=== PATIENT | male | born 2000 | race Caucasian/White ===

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

== ENCOUNTER 2020-02-03 16:50 | Outpatient (CLI) | payer OTHER, SELFPAY ==
[2020-02-03 19:48] LABS: Anion Gap 10 mmol/L (8-16); Blood Urea Nitrogen 17 mg/dL (8-21); Calcium 9.8 mg/dL (8.9-10.7); Carbon Dioxide 28 mmol/L (22-30); Chloride 104 mmol/L (98-107); Estimated Glomerular Filt Rate > 60; Glucose 99 mg/dL (75-110); Potassium 4.2 mmol/L (3.4-5.0); Sodium 142 mmol/L (134-143)
== END 2020-02-03 16:51 | disposition home or self-care (01) ==
LOC: ANHLAB 16:52
PROVIDERS: PCP Family Medicine; Visit Provider Physician Assistant Medical
DX: E87.0 Hyperosmolality and hypernatremia (principal)
CPT/HCPCS: 36415; 80048

== ENCOUNTER 2020-05-29 15:16 | Outpatient (CLI) | payer OTHER, SELFPAY ==
--- NOTE | 2020-05-29 15:32 | ECG_ITS ---
Measurements Intervals [place] Rate: 85 P: 76 RI: 134 QRS: 83 QRSD: 97 T: 78 QT: 338 QTc: 403 Interpretive Statements SINUS RHYTHM PEAKED T WAVES- CONSIDER HYPERKALEMIA OR ISCHEMIA ABNORMAL ECG Electronically Signed On 05-29-2020 16:56:09 CDT by Adonis Bearden D.O.
[2020-05-29 15:35] LABS: Hematocrit 46.6 % (42.0-52.0); Hemoglobin 16.2 g/dL (14.0-18.0); Mean Corpuscular HGB Conc 34.8 g/dl (32-36); Mean Corpuscular Hemoglobin 30.7 pg (26-34); Mean Corpuscular Volume 88.4 fl (80-100); Mean Platelet Volume 10.4 fl (7.4-10.4); Platelet Count Result 243 k/mm3 (150-375); Red Blood Count 5.27 M/mm3 (4.6-6.20)
[2020-05-29 15:50] LABS: Anion Gap 12 mmol/L (8-16); Blood Urea Nitrogen 17 mg/dL (9-20); Calcium 9.9 mg/dL (8.4-10.2); Carbon Dioxide 28 mmol/L (22-30); Chloride 101 mmol/L (98-107); Estimated Glomerular Filt Rate > 60; Glucose 113 mg/dL (75-110); Sodium 141 mmol/L (137-145)
== END 2020-05-29 15:17 | disposition home or self-care (01) ==
LOC: ANHLAB 15:19
PROVIDERS: PCP Family Medicine; Visit Provider Physician Assistant Medical
DX: R00.2 Palpitations (principal); R94.31 Abnormal electrocardiogram [ECG] [EKG]
CPT/HCPCS: 36415; 80048; 84443; 85027; 93005

== ENCOUNTER 2020-05-30 09:06 | Emergency (ER) | payer OTHER, SELFPAY ==
--- NOTE | ~2020-05-30 | XR_ITS ---
EXAMINATION: XR chest 2V DATE: 05/30/2020 09:52 INDICATION: Chest pain. TECHNIQUE: Frontal and lateral views of the chest were obtained. COMPARISON: Chest 2 views 05/08/2015 FINDINGS: The chest demonstrates clear lungs without pneumonia, pleural effusion, or pneumothorax. Th e heart size is normal. IMPRESSION: 1. No acute cardiopulmonary disease. Reviewed, dictated and finalized at location A.
[2020-05-30 09:10] VITALS: BP 126/90; PULSE 85; RESP 16; TEMP 36.7; O2SAT 100
--- NOTE | 2020-05-30 09:13 | ECG_ITS ---
Measurements Intervals [place] Rate: 88 P: 71 IN: 130 QRS: 10 QRSD: 102 T: 65 QT: 352 QTc: 426 Interpretive Statements SINUS RHYTHM PEAKED T WAVES- CONSIDER HYPERKALEMIA OR ISCHEMIA BASELINE ARTIFACT- II, III, AVR, AVL, AVF, V2-V6 ABNORMAL ECG Electronically Signed On 05-30-2020 9:22:33 CDT by Adonis Bearden D.O.
[2020-05-30 09:18] VITALS: PULSE 85
--- NOTE | 2020-05-30 09:21 | ED.CHESTPAIN ---
HPI - Chest Pain General Chief Complaint: Chest Pain Stated Complaint: chest pain, high hear rate Time Seen by Provider: 05/30/20 09:13 Source: RN notes reviewed History of Present Illness HPI narrative: Patient presents to emergency department from home for palpitations. Patient states that over the past 4 days he has been having episodes of palpitations with heart rate measured up to 160 bpm per his apple watch patient states that he also has having intermittent midsternal chest pain described as sharp and stabbing the last few seconds and resolved he denies any current palpitations or chest pain states he had gone to his PCPs office today and then had an outpatient EKG done yesterday and was called this morning come to the ED for further evaluation denies any fevers or chills shortness of breath abdominal pain nausea vomiting or any other symptoms Related Data Home Medications Medication Instructions Recorded Confirmed No Home Medications 05/30/20 05/30/20 Allergies Allergy/AdvReac Type Severity Reaction Status Date / Time No Known Allergies Allergy Verified 05/30/20 09:19 Review of Systems Review of Systems: Narrative: General: Denies fevers or chills ENT: Denies congestion Respiratory: Denies shortness of breath or cough CV: see HPI GI: Denies abdominal pain nausea, emesis or diarrhea Musculoskeletal: Denies back pain or muscle pain Neuro: Denies numbness, tingling, weakness or focal weakness Skin: Denies rash Except as documented, all other systems reviewed and negative [facility] Past Medical History Medical History Body mass index (BMI) less than 16.5 Social History Social History Smoking status: Never smoker Second hand tobacco smoke exposure: No Alcohol intake: former Substance use: former Gender identity (if verbalized by the patient): Male Exam Narrative: Exam Narrative: APPEARANCE: No acute distress, nontoxic, resting in bed EYES: EOMI HEENT: Normocephalic, atraumatic, OMM RESPIRATORY: No respiratory distress Clear to auscultation bilaterally with no rhonchi wheezing or rales. CARDIOVASCULAR: Regular rate and rhythm without murmurs rubs or gallops. ABDOMINAL: Soft, nontender, nondistended, no rebound or guarding MUSCULOSKELETAl: Moves all extremities. No clubbing, cyanosis or edema. NEURO: Awake and alert. Following commands, speech normal, no focal deficits SKIN:: Warm, dry. No rashes lesions or abrasions PSYCHIATRIC: Normal affect/mood, Course Course Emergency Course: Discussed with Dr. Katelyn Ortiz presentation work-up EKG was sent to Dr Escalona for review and agrees that PTAs are likely from the patient's young age and size this time feels patient may be discharged to follow-up as an outpatient Discussed with patient results of workup and diagnosis. Discussed need for follow-up with primary care, proper use of medication, and reasons to return to the emergency department. Patient understands and agrees to current treatment plan Vital Signs Vital signs: Vital Signs Temperature 98.1 F 05/30/20 09:10 Pulse Rate 85 05/30/20 09:10 Respiratory Rate 16 05/30/20 09:10 Blood Pressure 126/90 05/30/20 09:10 Pulse Oximetry 100 05/30/20 09:10 Temperature 98.1 F 05/30/20 09:10 Pulse Rate 62 05/30/20 11:00 Respiratory Rate 18 05/30/20 11:00 Blood Pressure 103/69 05/30/20 11:00 Pulse Oximetry 99 05/30/20 11:00 MDM - Chest Pain MDM Narrative Medical decision making narrative: Patient's EKGs and labs are without significant high risk changes. Cardiac risk factors reviewed. Patient is felt likely low risk for ACS and reasonable for further risk stratification testing as an outpatient. Pain was not sudden or maximal in onset without tearing or ripping quality. No other signs of symptoms suggest aortic dissection. A low-risk Wells criteria is noted, PE is felt
[2020-05-30 09:23] VITALS: BP 129/91; PULSE 75; RESP 16; O2SAT 100
[2020-05-30 09:30] LABS: Basophils Absolute Auto 0.1 K/mm3 (0.0-0.1); Basophils Percent Auto 1.1 % (0.2-1.2); Eosinophils Absolute Auto 0.1 K/mm3 (0-0.3); Eosinophils Percent Auto 1.3 % (0-4.4); Hematocrit 47.6 % (42.0-52.0); Hemoglobin 16.7 g/dL (14.0-18.0); Immature Granulocyte Absolute 0.01 K/mm3 (0.00-0.031); Immature Granulocyte Percent A 0.2 % (0-0.5); Lymphocytes Absolute Auto 2.76 K/mm3 (0.9-3.2); Lymphocytes Percent Auto 43.4 % (18.3-44.2); Mean Corpuscular HGB Conc 35.1 g/dl (32-36); Mean Corpuscular Hemoglobin 30.9 pg (26-34); Mean Corpuscular Volume 88.1 fl (80-100); Mean Platelet Volume 10.7 fl (7.4-10.4); Monocytes Absolute Auto 0.8 K/mm3 (0.1-0.6); Monocytes Percent Auto 11.9 % (2.6-8.5); Neutrophils Absolute Auto 2.7 K/mm3 (1.3-6.7); Neutrophils Percent Auto 42.1 % (45.5-73.1); Platelet Count Result 231 k/mm3 (150-375); Red Cell Distribution Width 11.9 % (11.5-14.5); White Blood Count 6.4 K/mm3 (4.5-10.0)
[2020-05-30 09:40] LABS: INR 1.2; Prothrombin Time 15.3 Seconds (11.1-14.7)
[2020-05-30 09:41] LABS: Partial Thromboplastin Time 30.6 SECONDS (22.3-36.8)
[2020-05-30 09:42] LABS: Anion Gap 12 mmol/L (8-16); Blood Urea Nitrogen 16 mg/dL (9-20); Calcium 10.1 mg/dL (8.4-10.2); Carbon Dioxide 28 mmol/L (22-30); Chloride 102 mmol/L (98-107); Estimated CRCL calculation 69 ml/min; Estimated Glomerular Filt Rate > 60; Glucose 110 mg/dL (75-110); Magnesium 1.9 mg/dL (1.6-2.3); Potassium 3.6 mmol/L (3.4-5.0); Sodium 142 mmol/L (137-145)
[2020-05-30 09:54] LABS: Troponin I < 0.012 ng/mL (0.000-0.034)
[2020-05-30 10:03] VITALS: BP 103/73; PULSE 73; RESP 16; O2SAT 100
[2020-05-30 11:00] VITALS: BP 103/69; PULSE 62; RESP 18; O2SAT 99
[2020-05-30 12:00] VITALS: BP 113/79; PULSE 68; RESP 18; O2SAT 100
== END 2020-05-30 12:00 | disposition home or self-care (01) ==
PROVIDERS: Emergency Provider Emergency Medicine; PCP Family Medicine
DX: R00.2 Palpitations (principal); R94.31 Abnormal electrocardiogram [ECG] [EKG]
CPT/HCPCS: 36415; 71046; 80048; 83735; 84443; 84484; 85025; 85610; 85730; 93005; 99284

== ENCOUNTER 2020-05-31 16:20 | Outpatient (CLI) | payer OTHER, SELFPAY ==
--- NOTE | 2020-06-04 10:58 | WPDHOLTEREM ---
Holter/Event Monitor Holter/Event Monitor Date of procedure: 06/04/20 Procedure Type: 48 hour Holter monitor Diagnosis: palpitations Indications: palpitations Image/Tracing Quality: good Finding: a total of 47 hours 59 minutes were recorded and analyzed. Underlying normal sinus rhythm with heart rate variability between 42 and 122 beats per minute with average heart rate of 65 beats per minute. The IV conduction system appears to be within normal limits. The AV conduction system appears to be a bit short. There was 1 PVC and 33 supraventricular ectopic beats. Thirty-one of these were single PACs and there was 1 atrial couplet. There is no complex arrhythmia, atrial fibrillation, sustained or nonsustained runs of ventricular or supraventricular tachycardia. No significant pauses or heart block. Longest RR interval was 1.6 seconds. Several symptom events are recorded in the patient's diary. Symptom events of chest pain, heart racing were reviewed. All of these correlate to sinus rhythm only without arrhythmia. Conclusion: 1. Sinus rhythm with average heart rate 65 beats per minute. 2. 1 PVC 3. 31 PACs and 1 atrial couplet 4. no complex arrhythmia 5. numerous symptom events of chest pain and heart racing correlate to sinus rhythm only without ectopy or arrhythmia
== END 2020-05-31 16:21 | disposition home or self-care (01) ==
LOC: ANHCARD 16:21
PROVIDERS: PCP Family Medicine; Visit Provider Physician Assistant Medical
DX: R00.2 Palpitations (principal); R07.89 Other chest pain
CPT/HCPCS: 93225; 93226

== ENCOUNTER 2020-06-08 10:41 | Outpatient (CLI) | payer OTHER, SELFPAY ==
--- NOTE | 2020-06-08 | ECHO_ITS ---
Patient Info Name: Nathanael Ramos Age: 20 years : 2000 Gender: Male Ht: 68 in Wt: 107 lbs BSA: 1.51 m2 HR: 65 bpm BP: 124 / 84 mmHg Heart Rhythm: Sinus Rhythm Exam Date: 06/08/2020 11:36 AM Exam Location: [facility] Patient Status: Outpatient Admit Date: 06/08/2020 Staff Ordering Physician: Liyah Srivastava MD Feeder Catcher: Charlotte Koroma RDCS Attending Provider: Liyah Srivastava MD Exam Type: CA echo doppler color flow Study Info Indications R07.89 - Other chest pain R00.0 - Tachycardia, unspecified Complete two-dimensional, color flow and Doppler transthoracic echocardiogram is performed. Summary 1. Complete two-dimensional, color flow and Doppler transthoracic echocardiogram is performed. 2. Left ventricular chamber dimension is normal. 3. Left ventricular systolic function is normal, estimated at 55-60%. 4. There is no increased left ventricular wall thickness. 5. The left ventricular diastolic function is normal. 6. There is mild tricuspid valve regurgitation. Left Ventricle Left ventricular chamber dimension is normal. Left ventricular systolic function is normal, estimated at 55-60%. There is no increased left ventricular wall thickness. The left ventricular diastolic function is normal. Right Ventricle Right ventricular chamber dimension is normal. Right ventricular systolic function is normal. Left Atria Left atrial chamber dimension is normal. Right Atria Right atrial chamber dimension is normal. Atrial Septum Intact interatrial septum visualized by color flow imaging. Aortic Valve The aortic valve is trileaflet. There is no aortic valve sclerosis. There is no aortic valve stenosis. There is trace aortic valve regurgitation. Pulmonic Valve The pulmonic valve is normal. There is no pulmonic valve stenosis. There is trace pulmonic regurgitation. Mitral Valve The mitral valve has normal leaflets. There is no mitral valve stenosis. There is trace mitral valve regurgitation. Tricuspid Valve The tricuspid valve leaflets are normal. There is no significant tricuspid valve stenosis. There is mild tricuspid valve regurgitation. No pulmonary hypertension, estimated pulmonary arterial systolic pressure is 26 mmHg. Pericardium/Pleural The pericardium appears normal. There is no pericardial effusion. Inferior Vena Cava Normal inferior vena cava with >50% collapse upon inspiration consistent with normal right atrial pressure, 10 mmHg. Aorta The aortic root size at the sinus of Valsalva is normal. Left Ventricular Outflow Tract Name Value Normal LVOT 2D LVOT Diameter 2.0 cm LVOT Doppler LVOT Peak Gradient 4 mmHg LVOT Mean Gradient 2 mmHg LVOT VTI 19 cm LVOT VTI/AV VTI Ratio 0.7 LVOT Stroke Volume 61 ml LVOT CO 3.7 l/min LVOT CI 2.4 l/min/m2 Pulmonic Valve
== END 2020-06-08 10:42 | disposition home or self-care (01) ==
LOC: ANHCARD 10:43
PROVIDERS: PCP Family Medicine; Visit Provider Internal Medicine Cardiovascular Disease
DX: R07.89 Other chest pain (principal); R00.0 Tachycardia, unspecified
CPT/HCPCS: 93306